=== PATIENT | male | born 1970 | race Caucasian/White ===

== ENCOUNTER 2018-09-13 03:46 | Emergency (ER) | payer SELFPAY ==
[2018-09-13] MEDS ORDERED: NAPROXEN 250 MG TABLET PO ONE (04:05)
[2018-09-13] MEDS ORDERED: CLINDAMYCIN 150 MG CAP PO ONE (04:05)
--- NOTE | 2018-09-13 04:11 | Emergency Department Record ---
History of Present Illness - General Chief complaint: ENT Stated complaint: SWOLLEN GLAND Time Seen by Provider: 09/13/18 03:51 Source: Patient Mode of Arrival: Ambulatory Limitations: No limitations - History of Present Illness Initial comments: The patient is here due to R lower dental pain and swelling. He broke his tooth about 2 weeks ago and it has been painful since. It has now worsened over the last 2 days and he has some swelling under his jaw. The patient denies any fever , chills, difficulty swallowing, or voice changes. MD complaint: Tooth pain Onset/Timin -: Days(s) Location: R ear, Other Consistency: Constant, Getting worse Improves with: None Worsens with: Eating Context- Dental: History of dental caries Context- Ear: Other - Related Data Home Medications Medication Instructions Recorded Confirmed Last Taken Benazepril/Hydrochlorothiazide 1 tab PO DAILY 09/13/18 09/13/18 09/12/18 [Benazepril-Hctz 20-25 mg Tab] Metoprolol Succinate 50 mg PO DAILY 09/13/18 09/13/18 09/12/18 Ropinirole HCl [Requip] 0.5 mg PO QHS 09/13/18 09/13/18 09/12/18 Sumatriptan Succinate 100 mg PO TID PRN 09/13/18 09/13/18 09/12/18 Previous Rx's Medication Instructions Recorded Clindamycin HCl [Cleocin HCl] 300 mg PO QID #28 capsule 09/13/18 Naproxen [Naprosyn] 500 mg PO BID #14 tablet. 09/13/18 Allergies Allergy/AdvReac Type Severity Reaction Status Date / Time No Known Drug Allergies Allergy Verified 09/13/18 03:54 Travel Screening - Travel/Exposure Within Last 30 Days Have you traveled within the last 30 days?: No - Travel Symptoms Symptom Screening: None Review of Systems Constitutional: Denies: Chills, Fever Past Medical History - SOCIAL HISTORY Smoking Status: Never smoker Alcohol Use: None Drug Use: None - RESPIRATORY Hx Respiratory Disorders: No - CARDIOVASCULAR Hx Cardio Disorders: Yes Hx Hypertension: Yes - NEURO Hx Neuro Disorders: Yes Hx Headaches: Yes Comment:: restless leg syndrome - GI Hx GI Disorders: Yes Hx Abdominal Pain: Yes Comment:: ulcerative colitis, perf bowel - Hx Genitourinary Disorders: No - ENDOCRINE Hx Endocrine Disorders: No - MUSCULOSKELETAL Hx Musculoskeletal Disorders: No - PSYCH Hx Psych Problems: No - HEMATOLOGY/ONCOLOGY Hx Hematology/Oncology Disorders: No Family Medical History Any Significant Family History?: No Physical Exam - General General Appearance: Alert, Oriented x3, Cooperative, No acute distress - Head Head exam: Atraumatic, Normocephalic, Normal inspection Image of Chin: 1 - Area of pain and slight swelling. - Eye Eye exam: Normal appearance, PERRL, EOMI - ENT ENT exam: TM's normal bilaterally. negative: Normal exam Teeth exam: Dental caries, Dental tenderness # (30 and 31. Tooth #31 is partially fx'd and the pulp exposed.). negative: Normal inspection Throat exam: Normal inspection, Tonsillar erythema, Tonsillomegaly - Neck Neck exam: Normal inspection, Lymphadenopathy, Tenderness (There is tenderness and very slight fullness to the R medial inferior mandible area under tooth # 31. ). negative: Meningismus - Respiratory Respiratory exam: Normal lung sounds bilaterally. negative: Respiratory distress Course Vital Signs 09/13/18 03:50 Temperature 97.7 F Pulse Rate [ 87 Pulse Ox Probe] Respiratory 20 Rate Blood Pressure 142/90 [Left Arm] Pulse Ox 99 - Reevaluation(s) Reevaluation #1: I did explain to the patient the need for the oral Abx's and F/U with a Dentist NELIDA. Presently there is no airway issues and only very mild swelling but the patient was directed to return for any worsening symptoms. 09/13/18 04:09 09/13/18 04:12 Disposition Disposition: Discharge Clinical Impression: Infected dental carries Disposition: Home, Self-Care Condition: (2) Stable Instructions: Toothache (ED) Additional Instructions: Please continue the Clindamycin and take Naprosyn for pain. Please see a Dentist NELIDA. Return to the ER for any worsening symptoms. Prescriptions: Clindamycin HCl [Cleocin HCl] 300 mg PO QID #28 capsule Naproxen [Naprosyn] 500 mg PO BID #14 tablet.dr Forms: Patient Portal Access Time of Disposition: 04:11 Quality - Quality Measures Quality Measures: N/A - Blood Pressure Screening View Details: Yes Does Patient Have Any of the Following: Active Dx of HTN Blood Pressure Classification: Hypertensive Reading Systolic Measurement: 142 Diastolic Measurement: 90 Screening for High Blood Pressure: Patient Exclusion, Hx of HTN [[id number]]
== END 2018-09-13 04:18 | disposition home or self-care (01) ==
LOC: ER 03:46
DX: K02.9 Dental caries, unspecified (principal); R22.1 Localized swelling, mass and lump, neck; I10 Essential (primary) hypertension
CPT/HCPCS: 99282